=== PATIENT | female | born 1960 | race Caucasian/White ===

== ENCOUNTER → 2019-07-26 | Outpatient (CLI) | payer OTHER ==
[~2019-07-26] MED LIST: AMLO10TA4 PO; ASPI-586 PO; LISI1TAB8 PO; METO-333 PO; NITR-65 PO; TAMS0.4C98 PO; TRAM50TA2 PO
--- NOTE | 2019-07-26 14:43 | Diagnostic Imaging Report ---
INDICATION: Right nephrolithiasis KUB 1:36 p.m. FINDINGS: Bowel gas pattern is normal. There are no pathologic masses or calcifications in the abdomen. There is a linear calcification low on the right side of the pelvis that could be a distal ureteral calculus. IMPRESSION: Questionable distal right ureteral calculus. Dictated by: Dictated on workstation # [id number]
== END ==
LOC: RAD 13:23
PROVIDERS: ATTEND Urology
DX: N20.2 Calculus of kidney with calculus of ureter (principal)
CPT/HCPCS: 74018

== ENCOUNTER 2019-07-30 05:33 | Outpatient (CLI) | payer OTHER ==
[~2019-07-30] VITALS: Ht 172.7 cm; Wt 90.8 kg
[2019-07-30] MEDS ORDERED: TAMS0.4C98 PO (12:24)
[2019-07-30] MEDS ORDERED: AMLO10TA4 PO (12:24)
[2019-07-30] MEDS ORDERED: METO-333 PO (12:24)
[2019-07-30] MEDS ORDERED: ASPI-586 PO (12:24)
[2019-07-30] MEDS ORDERED: LISI1TAB8 PO (12:24)
[2019-07-30] MEDS ORDERED: TRAM50TA2 PO (12:24)
[2019-07-31] MEDS ORDERED: NITR-65 PO (11:00)
== END 2019-07-30 12:27 | disposition home or self-care (01) ==
LOC: PREOP 05:33
PROVIDERS: ATTEND Urology
DX: Z01.818 Encounter for other preprocedural examination (principal)

== ENCOUNTER 2019-07-31 06:49 | Day surgery (SDC) | payer OTHER ==
[~2019-07-31] VITALS: Ht 172.7 cm; Wt 90.8 kg
[2019-07-31] VITALS (12 sets, daily range): BP systolic 84–128; BP diastolic 48–92
[~2019-07-31 06:49] MED LIST changes: -NITR-65 PO
--- NOTE | 2019-07-31 07:08 | Progress Note-Pre Operative ---
Pre-Operative Progress Note H&P Reviewed The H&P was reviewed, patient examined and no changes noted. Date Seen by Provider: Jul 31, 2019 Time Seen by Provider: 07:08 Date H&P Reviewed: Jul 31, 2019 Time H&P Reviewed: 07:08 Pre-Operative Diagnosis: RT DISTAL URETERAL STONE BEVERLY CERVANTES MD Jul 31, 2019 07:08 POS
[2019-07-31] MEDS ORDERED: cefTRIAXone FOR IV USE 1,000 MG in WATER (STERILE) FOR INJECTION 10 ML IV ONE (07:15)
[2019-07-31] MEDS ORDERED: CATHETER FLUSH 10 ML SYR IV PRN (07:30)
--- NOTE | 2019-07-31 07:55 | Diagnostic Imaging Report ---
INDICATION: ESWL. Single view of the abdomen was obtained and compared to 07/26/2019. FINDINGS: Again noted is a calcification in the right side of the pelvis, possibly in the distal right ureter. It is unchanged from the prior exam. No definite calcifications over the renal shadows or along the expected course of the proximal or mid ureters. No free air or evidence for bowel obstruction although there is a large amount of stool which might indicate some constipation. IMPRESSION: 1. There is an 8 mm calcification in the right side of the pelvis unchanged in position since the prior study. This could be in the distal right ureter. Dictated by: Dictated on workstation # [id number]
[2019-07-31] MEDS ORDERED: MIDAZOLAM 2 MG/2 ML (VERSED) VIAL ONE (07:59)
[2019-07-31] MEDS ORDERED: fentaNYL INJECTION 100 MCG/2 ML AMP ONE (07:59)
[2019-07-31] MEDS: LACTATED RINGERS 1,000 ML IV PRN ×2 (08:17→09:37)
[2019-07-31] MEDS ORDERED: FUROSEMIDE 40 MG/4 ML INJ (LASIX) ONE (08:43)
[2019-07-31] MEDS ORDERED: proPOfol 200 MG/20 ML (DIPRIVAN) VIAL IV ONE (08:43)
[2019-07-31] MEDS ORDERED: ONDANSETRON 4 MG/2 ML (SDV) Z0FRAN ONE (08:43)
[2019-07-31] MEDS ORDERED: SEVOFLURANE (ULTANE) 15 ML INHAL SOLN ONE ×7 (08:43→09:43)
[2019-07-31] MEDS ORDERED: LIDOCAINE PF 2% 5 ML (XYLOCAINE) VIAL ONE (08:43)
[2019-07-31] MEDS ORDERED: KETOROLAC 30 MG/ML VIAL ONE (08:43)
[2019-07-31] MEDS ORDERED: ROCURONIUM 10 MG/ML 5 ML SYRINGE IV ONE (08:55)
[2019-07-31] MEDS ORDERED: GLYCOPYRROLATE 0.2 MG/ML (ROBINUL) 2 ML VIAL ONE (09:15)
--- NOTE | 2019-07-31 09:18 | Discharge Inst-Urology ---
Discharge Inst-Urology Reconcile Patient Problems Problems Reviewed?: Yes Final Diagnosis RT DISTAL URETERAL STONE Patient Instructions/Follow Up Plan/Assessment/Instructions Please make appointment to been seen in office in 2 weeks. KUB prior to it. Stay off ASA till then KUB on way home Post ESWL instructions Increase oral fluids for 48 hours and then as needed. Diet and Activity as tolerated. If questions or concerns contact your physician Or seek help at emergency department. BEVERLY CERVANTES MD Jul 31, 2019 09:18 POS
--- NOTE | 2019-07-31 09:20 | Progress Note-Post Operative ---
Post-Operative Progess Note Surgeon (s)/Supervisor [employer] (s) Surgeon BEVERLY CERVANTES MD Supervisor [employer]: SAME Pre-Operative Diagnosis RT DISTAL URETERAL STONE AND 3/4+ CYSTOCELE Post-Operative Diagnosis SAME Procedure & Operative Findings Date of Procedure 07/31/19 Procedure Performed/Findings RT URETEROSCOPY, RT ESWL Anesthesia Type GENERAL Estimated Blood Loss Estimated blood loss (mL): NONE Specimens/Packing Specimens Removed NONE Packing: NONE BEVERLY CERVANTES MD Jul 31, 2019 09:20 POS
[2019-07-31] MEDS ORDERED: morphine INJ 10 MG/ML 1ML (SYR OR VIAL) IVP ONE (10:00)
[2019-07-31] MEDS ORDERED: ONDANSETRON 4 MG/2 ML (SDV) Z0FRAN IVP PRN (10:00)
[2019-07-31] MEDS ORDERED: fentaNYL INJECTION 100 MCG/2 ML AMP IVP ONE (10:00)
[2019-07-31] MEDS ORDERED: MEPERIDINE (DEMEROL) INJ 50 MG/ML IVP ONE (10:00)
[2019-07-31] MEDS ORDERED: NITR-65 PO (11:00)
--- NOTE | 2019-07-31 12:54 | Anesthesia-General Post-Op ---
General Patient Condition Mental Status/LOC: Same as Preop Cardiovascular: Satisfactory Nausea/Vomiting: Absent Respiratory: Satisfactory Pain: Controlled Complications: Absent Post Op Complications Complications None Follow Up Care/Instructions Patient Instructions None needed. Anesthesia/Patient Condition Patient Condition Patient is doing well, no complaints, stable vital signs, no apparent adverse anesthesia problems. No complications reported per nursing. ANITA PIERRE CRNA Jul 31, 2019 12:54 POS
--- NOTE | 2019-07-31 14:19 | OPERATIVE REPORT ---
DATE OF SERVICE: 07/31/2019 PREOPERATIVE DIAGNOSIS: Right distal ureteral stone. POSTOPERATIVE DIAGNOSIS: Right distal ureteral stone. OPERATION PERFORMED: Right ureteroscopy and right ESWL. SURGEON: Sunday Cervantes MD ANESTHESIA: General. COMPLICATIONS: None. DESCRIPTION OF PROCEDURE: Under satisfactory general anesthesia, the patient in lithotomy position, genitalia were prepped and draped in the usual sterile fashion, noted a 3 to 4+ cystocele. The cystoscope was introduced under vision. The ureteral orifice right side was visualized. I had to put some lap in the vagina to reduce the cystocele to be able to get into the ureter. I dilated the right ureteral orifice intramural portion to accommodate a 6.9 [place] semirigid ureteroscope; however, I could not manipulate it with what might have been a curve secondary to cystocele to get to the stone. I discontinued further attempt to cause no harm. I removed the ureteroscope, emptied the bladder and removed the cystoscope. The patient was moved on the ESWL table supine. The right ureteral stone distal was localized. Shocks were delivered at kV of 7. A total of 3500 shocks completely fragmented the stone very nicely and the patient received 30 mg of Toradol and 40 mg of Lasix IV at the end of the procedure. She tolerated the procedure and anesthesia well and was sent to recovery room in stable condition. There was no bruise, hematoma or sign of any bleeding at the skin, subcutaneous tissue level. Job ID: [id number] DocumentID: [id number] Dictated Date: 07/31/2019 09:47:05 [employer] Date: 07/31/2019 14:18:34 Dictated By: SUNDAY CERVANTES MD
--- NOTE | 2019-07-31 16:15 | Diagnostic Imaging Report ---
INDICATION: Nephrolithiasis. EXAMINATION: KUB at 11:49 AM. FINDINGS: There is a moderate amount of stool in the colon. There is a 7 mm linear calcific density in the right side of the pelvis, similar to the study from earlier in the day. IMPRESSION: Possible calculus in the distal right ureter. Dictated by: Dictated on workstation # [id number]
== END 2019-07-31 12:15 | disposition home or self-care (01) ==
LOC: SDC 06:49
PROVIDERS: ATTEND Urology
DX: N20.1 Calculus of ureter (principal); N40.0 Benign prostatic hyperplasia without lower urinary tract symptoms; I10 Essential (primary) hypertension; J30.9 Allergic rhinitis, unspecified; G62.9 Polyneuropathy, unspecified; K21.9 Gastro-esophageal reflux disease without esophagitis; Z79.899 Other long term (current) drug therapy; Z88.5 Allergy status to narcotic agent; Z88.8 Allergy status to other drugs, medicaments and biological substances; Z83.3 Family history of diabetes mellitus; Z80.1 Family history of malignant neoplasm of trachea, bronchus and lung
CPT/HCPCS: 74018; 87081

== ENCOUNTER → 2019-08-06 | Outpatient (CLI) | payer OTHER ==
[~2019-08-06] MED LIST changes: +NITR-65 PO
--- NOTE | 2019-08-06 16:01 | Diagnostic Imaging Report ---
INDICATION: Lower abdominal pain x3 weeks. Recent ESWL. COMPARISON: 07/31/2019 FINDINGS: Multiple supine and upright radiographic views of the abdomen were obtained. Small bowel loops are nondistended. A few air-fluid levels are noted, but appear to be within the colon. There is no large collection of free intraperitoneal air. No unexpected extraosseous calcifications or radiopaque foreign bodies are seen. Osseous structures show no new acute abnormalities. Included portions of the lung bases are clear. IMPRESSION: 1. No unexpected extraosseous calcifications or radiopaque foreign bodies. 2. Nonobstructive small gas pattern. Dictated by: Dictated on workstation # [id number]
== END ==
LOC: RAD 15:28
PROVIDERS: ATTEND Urology
DX: N20.2 Calculus of kidney with calculus of ureter (principal)
CPT/HCPCS: 74019

== ENCOUNTER 2022-12-29 11:59 | Day surgery (SDC) | payer OTHER ==
[~2022-12-29] VITALS: Ht 172.7 cm; Wt 90.8 kg
[~2022-12-29 11:59] MED LIST changes: +LISI1TAB46 PO; -LISI1TAB8 PO; -TAMS0.4C98 PO; +TMSL.4C PO; -TRAM50TA2 PO; +TRM50T PO
[2022-12-29] MEDS ORDERED: ASPIRIN 81 MG CHEW (CHILDREN'S ASA) PO ONE (12:15)
[2022-12-29] MEDS ORDERED: NITROGLYCERIN 0.4 MG SL TABS BTL 25'S SL PRN (12:15)
--- NOTE | 2022-12-29 12:19 | ED Chest Pain ---
General Chief Complaint: Chest Pain Stated Complaint: CHEST PAINS Source: patient Exam Limitations: no limitations (CARMEN HERNÁNDEZ) History of Present Illness Date Seen by Provider: Dec 29, 2022 Time Seen by Provider: 12:13 Initial Comments Patient is a 62-year-old female who presents to the ED for chest pain. Chest pain started 20 minutes ago while sitting in the car. She felt this pressure along her chest that radiated to her back. She rates the chest pressure 6 out of 10. She felt a pain that radiate up into the neck bilateral. She had associated shortness of breath. She states the pain caused her to lean forward. She felt nauseous and lightheaded. She states she has been having r ight shoulder back pain over the past 3 days. Pain appears to be worse with movement or deep inspiration. The pain today does radiate to the right shoulder worse with deep inspiration and breathing. She denies having history of similar symptoms in the past. Patient has a history of hypertension, dyslipidemia. Family cardiac history. Denies history of cardiac work-up in the past. She denies vomiting, diarrhea, cough, abdominal pain, dysuria, hematuria. Denies take any medication for her pain (CARMEN HERNÁNDEZ) Allergies and Home Medications Allergies Coded Allergies: acetaminophen (Verified Allergy, Unknown, Vomiting, 12/29/22) oxycodone (Verified Allergy, Unknown, Vomiting, 12/29/22) Patient Home Medication List Home Medication List Reviewed: Yes (CARMEN HERNÁNDEZ) Amlodipine Besylate (Norvasc) Unknown Strength Tablet, 1 TAB PO DAILY, (Reported) Entered as Reported by: VINCENT ROPER on 07/30/19 1224 Lisinopril/Hydrochlorothiazide (Lisinopril-Hctz 20-12.5 mg Tab) 1 Each Tablet, 1 EACH PO DAILY, (Reported) Entered as Reported by: VINCENT ROPER on 07/30/19 1224 Metoprolol Tartrate (Metoprolol Tartrate) Unknown Strength Tablet, 1 TAB PO BID, (Reported) Entered as Reported by: VINCENT ROPER on 07/30/19 1224 Nitrofurantoin Monohyd/M-Cryst (Macrobid 100 mg Capsule) 100 Mg Capsule, 1 TAB PO BID Prescribed by: CRISTINO ADEN on 07/31/19 1100 Pantoprazole Sodium (Protonix) 40 Mg Tablet.dr, 40 MG PO DAILY Prescribed by: FERN MCGREGOR on 12/29/22 1605 Tamsulosin HCl (Flomax) 0.4 Mg Cap, 0.4 MG PO DAILY, (Reported) Entered as Reported by: VINCENT ROPER on 07/30/19 1224 Tramadol HCl (Tramadol HCl) 50 Mg Tablet, 50 MG PO Q6H PRN for PAIN-MILD (1-4), (Reported) Entered as Reported by: VINCENT ROPER on 07/30/19 1224 Review of Systems Review of Systems Constitutional: No chills, No diaphoresis, No fever, No malaise, No weakness EENTM: No Double Vision, No Eye Pain Respiratory: Denies Cough, Denies Orthopnea; Shortness of Air Cardiovascular: Chest Pain; Denies Edema, Denies Irregular Heart Rate Gastrointestinal: Denies Abdominal Pain, Denies Nausea Genitourinary: Denies Drainage, Denies Frequency, Denies Flank Pain Musculoskeletal: back pain; No joint pain Skin: No change in color, No change in hair/nails Psychiatric/Neurological: Other (Lightheadedness) (CARMEN HERNÁNDEZ) All Other Systems Reviewed Negative Unless Noted: Yes (CARMEN HERNÁNDEZ) Past Ekkgfdf-Revuyp-Arcsdv Hx Immunizations Up To Date PED Vaccines UTD: No (CARMEN HERNÁNDEZ) Seasonal Allergies Seasonal Allergies: Yes (CARMEN HERNÁNDEZ) Past Medical History Surgeries: Yes (kidney stone basket) Tonsillectomy Respiratory: No Cardiac: Yes Hypertension Neurological: No Genitourinary: Yes Kidney Stones Gastrointestinal: No Musculoskeletal: No Endocrine: No HEENT: No Cancer: No Psychosocial: No Integumentary: No Blood Disorders: No (CARMEN HERNÁNDEZ) Physical Exam Vital Signs Vital Signs - First Documented 12/29/22 12:05 Temp 36.1 Pulse 77 Resp 18 B/P (MAP) 166/98 (120) Pulse Ox 100 O2 Delivery Room Air (NICHOLAS,JOSSY L DO) Vital Signs Capillary Refill : (CARMEN HERNÁNDEZ) Height, Weight, BMI Height: '" Weight: lbs. oz. kg; 30.44 BMI Method: General Appearance: No Apparent Distress, WD/WN HEENT: PERRL/EOMI, TMs Normal, Normal ENT Inspection, Pharynx Normal Neck: Full Range of Motion, Normal Inspection, Non Tender, Supple Respiratory: Chest Non Tender, Lungs Clear, Normal Breath Sounds, No Accessory Muscle Use, No Respiratory Distress, Other (Right posterior upper back tenderness) Cardiovascular: Regular Rate, Rhythm, No Edema, No Gallop, No JVD, No Murmur Gastrointestinal: Normal Bowel Sounds, No Organomegaly, No Pulsatile Mass, Non Tender Extremity: Normal Inspection, Normal Range of Motion, Non Tender, No Calf Tenderness Neurologic/Psychiatric: Alert, Oriented x3, No Motor/Sensory Deficits, Normal Mood/Affect, playground equipment erector II-XII Norm as Tested Skin: Normal Color, Warm/Dry (CARMEN HERNÁNDEZ) Progress/Results/Core Measures Results/Orders Lab Results Laboratory Tests Test 12/29/22 12:13 Range/Units White Blood Count 6.4 4.3-11.0 10^3/uL Red Blood Count 4.72 3.80-5.11 10^6/uL Hemoglobin 13.3 11.5-16.0 g/dL Hematocrit 40 35-52 % Mean Corpuscular Volume 86 80-99 fL Mean Corpuscular Hemoglobin 28 25-34 pg Mean Corpuscular Hemoglobin Concent 33 32-36 g/dL Red Cell Distribution Width 13.1 10.0-14.5 % Platelet Count 259 130-400 10^3/uL Mean Platelet Volume 10.9 9.0-12.2 fL Immature Granulocyte % (Auto) 0 % Neutrophils (%) (Auto) 52 42-75 % Lymphocytes (%) (Auto) 36 12-44 % Monocytes (%) (Auto) 9 0-12 % Eosinophils (%) (Auto) 3 0-10 % Basophils (%) (Auto) 1 0-10 % Neutrophils # (Auto) 3.3 1.8-7.8 10^3/uL Lymphocytes # (Auto) 2.3 1.0-4.0 10^3/uL Monocytes # (Auto) 0.6 0.0-1.0 10^3/uL Eosinophils # (Auto) 0.2 0.0-0.3 10^3/uL Basophils # (Auto) 0.0 0.0-0.1 10^3/uL Immature Granulocyte # (Auto) 0.0 0.0-0.1 10^3/uL Prothrombin Time 12.9 12.2-14.7 SEC INR Comment 0.9 0.8-1.4 Activated Partial Thromboplast Time 32 24-35 SEC D-Dimer 0.38 0.00-0.49 UG/ML Sodium Level 141 135-145 MMOL/L Potassium Level 3.5 L 3.6-5.0 MMOL/L Chloride Level 106 98-107 MMOL/L Carbon Dioxide Level 24 21-32 MMOL/L Anion Gap 11 5-14 MMOL/L Blood Urea Nitrogen 14 7-18 MG/DL Creatinine 0.88 0.60-1.30 MG/DL Estimat Glomerular Filtration Rate 75 BUN/Creatinine Ratio 16 Glucose Level 100 70-105 MG/DL Calcium Level 9.7 8.5-10.1 MG/DL Corrected Calcium 9.3 8.5-10.1 MG/DL Magnesium Level 2.3 1.6-2.4 MG/DL Total Bilirubin 0.6 0.1-1.0 MG/DL Aspartate Amino Transf (AST/SGOT) 23 5-34 U/L Alanine Aminotransferase (ALT/SGPT) 25 0-55 U/L Alkaline Phosphatase 86 40-136 U/L Myoglobin 35.7 10.0-92.0 NG/ML Troponin I < 0.028 <0.028 NG/ML B-Type Natriuretic Peptide 46.5 <100.0 PG/ML Total Protein 8.0 6.4-8.2 GM/DL Albumin 4.5 3.2-4.5 GM/DL Lipase 19 8-78 U/L (NICHOLAS,JOSSY L DO) My Orders Orders - NICHOLAS,JOSSY L DO Ekg Tracing (12/29/22 12:04) (NICHOLAS,JOSSY L DO) Medications Given in ED Current Medications Medications Dose Ordered Sig/Miranda Route Start Time Stop Time Status Last Admin Dose Admin Aspirin 324 mg ONCE ONCE PO 12/29/22 12:15 12/29/22 12:16 DC 12/29/22 12:37 324 MG Morphine Sulfate 4 mg STK-MED ONCE .ROUTE 12/29/22 12:49 12/29/22 12:51 DC 4/19/23 12:52 2 MG Nitroglycerin 0.4 mg UD PRN SL 12/29/22 12:15 12/29/22 12:37 0.4 MG (JOSSY NICHOLAS DO) Vital Signs/I&O 12/29/22 12/29/22 12/29/22 12:05 12:36 12:45 Temp 36.1 Pulse 77 78 76 Resp 18 B/P (MAP) 166/98 (120) 127/105 (112) 132/90 (104) Pulse Ox 100 O2 Delivery Room Air (JOSSY NICHOLAS DO) Comment Sinus rhythm, prolonged OR interval, 67 bpm, QRS duration 97 MS, QTc 432 MS (CARMEN HERNÁNDEZ) Departure Communication (Admissions) Time/Spoke to Admitting Phy: 14:11 (CARMEN HERNÁNDEZ) Communication (PCP) Reviewed previous visits, H&P, lab testing. Differential diagnosis of acute coronary syndrome, CHF, PE, pneumonia, pneumothorax, pleurisy, musculoskeletal pain. acute onset of chest pain 20 minutes before arrival. She was sat in the car. She felt nauseous short of breath with rating pain to the neck. She states she has had some right upper shoulder blade pain over the past 3 days seems to be worse with movement or deep inspiration. No known cardiac history. History of dyslipidemia, hypertension, family cardiac history. Denies history of cardiac work-up. On arrival cardiac work-up was initiated. EKG showed sinus rhythm with prolonged OR interval. 67 bpm. No evidence of ST elevation depression or T wave inversion. She was given a full aspirin 324 and sublingual nitro with some resolution of her chest pain. She initially stated chest pain was 6 out of 10. Chest x-ray was negative for pneumonia, pneumothorax. Lab work was generalized unremarkable. Ischial troponin negative. BNP negative. D-dimer negative. No appreciable leg swelling. She was given a second dose of morphine with near resolution of pain. Patient with a heart score of 4. Cardiac risk factors. Moderate suspicion. Patient was discussed Dr. Mcgregor automated weaver who evaluated patient here in the ER. Dr. Mcgregor recommended patient to go to the [facility]. Consent was given. (CARMEN HERNÁNDEZ) Impression Primary Impression: Chest pain Disposition: ADMITTED INPATIENT Condition: Stable Admissions Decision to Admit Reason: Admit from ER (General) Decision to Admit/Date: Dec 29, 2022 Time/Decision to Admit Time: 14:24 (CARMEN HERNÁNDEZ) Departure-Patient Inst. Referrals: ROCIO BRAUN DO (PCP/Family) Primary Care Physician Scripts Pantoprazole Sodium (Protonix) 40 Mg Tablet. 40 MG PO DAILY, #30 TAB 3 Refills Prov: FERN MCGREGOR MD 12/29/22 CARMEN HERNÁNDEZ Dec 29, 2022 12:19 JOSSY NICHOLAS DO Dec 29, 2022 14:05
[2022-12-29 12:20] LABS: BASOPHILS % (AUTO) 1 % (0-10); EOSINOPHILS # (AUTO) 0.2 10^3/uL (0.0-0.3); EOSINOPHILS % (AUTO) 3 % (0-10); HEMATOCRIT 40 % (35-52); HEMOGLOBIN 13.3 g/dL (11.5-16.0); LYMPHOCYTES # (AUTO) 2.3 10^3/uL (1.0-4.0); LYMPHOCYTES % (AUTO) 36 % (12-44); MEAN CORPUSCULAR HEMOGLOBIN 28 pg (25-34); MEAN CORPUSCULAR HGB CONC 33 g/dL (32-36); MEAN CORPUSCULAR VOLUME 86 fL (80-99); MEAN PLATELET VOLUME 10.9 fL (9.0-12.2); MONOCYTES # (AUTO) 0.6 10^3/uL (0.0-1.0); MONOCYTES % (AUTO) 9 % (0-12); NEUTROPHILS # (AUTO) 3.3 10^3/uL (1.8-7.8); NEUTROPHILS % (AUTO) 52 % (42-75); PLATELET COUNT 259 10^3/uL (130-400); WHITE BLOOD COUNT 6.4 10^3/uL (4.3-11.0)
[2022-12-29 12:49] LABS: ALBUMIN 4.5 GM/DL (3.2-4.5); INR 0.9 (0.8-1.4); POTASSIUM 3.5 MMOL/L (3.6-5.0); PROTHROMBIN TIME PATIENT 12.9 SEC (12.2-14.7)
[2022-12-29] MEDS ORDERED: morphine INJ 4 MG/ML 1 ML (VIAL/SYRINGE) ONE (12:49)
[2022-12-29 12:50] LABS: CALCIUM 9.7 MG/DL (8.5-10.1)
[2022-12-29 12:53] LABS: BILIRUBIN,TOTAL 0.6 MG/DL (0.1-1.0)
[2022-12-29 12:55] LABS: CREATININE SERUM 0.88 MG/DL (0.60-1.30)
[2022-12-29 12:58] LABS: MAGNESIUM 2.3 MG/DL (1.6-2.4)
[2022-12-29] MEDS ORDERED: morphine INJ 10 MG/ML 1ML (SYR OR VIAL) IVP ONE (13:00)
--- NOTE | 2022-12-29 13:04 | Diagnostic Imaging Report ---
CLINICAL INDICATION: Patient with chest pain. EXAM: Portable chest x-ray upright view. COMPARISON: None. FINDINGS: Lungs/pleura: There is mild bibasilar atelectasis. Otherwise, lungs are clear. There is no pneumothorax. There is no pleural effusion. Mediastinum: Unremarkable. Pulmonary vasculature: Unremarkable. Heart: Unremarkable. Bones/extrathoracic soft tissue: There are degenerative spurs involving the thoracic spine. IMPRESSION: There is mild bibasilar atelectasis. There is no radiographic evidence of acute cortical pulmonary process. Dictated by: Dictated on workstation # [id number]
[2022-12-29] MEDS ORDERED: LIDOCAINE 2% 20 ML (XYLOCAINE) VIAL ONE (14:16)
[2022-12-29] MEDS ORDERED: HEParin (CATH LAB) 2,000 ML IV ONE (14:16)
[2022-12-29] MEDS ORDERED: NS IV 1000 ML 1,000 ML ONE (14:16)
--- NOTE | 2022-12-29 14:23 | Consultation-Cardiology ---
HPI-Cardiology Cardiology Consultation Date of Consultation 12/29/22 Date of Admission Time Seen by Provider: 14:17 Indication: Chest pain HPI Patient is a 62 y.o. female with history or HTN, HLP. Presented to the ER with complaints of chest pain this afternoon while riding in car. Describes pain as sharp and stabbing initially, followed by pressure. Associated right arm, neck a nd jaw pain, associated nausea. Was given SL nitro and morphine with some relief of pain. Upon interviewing patient she is tearful and appears anxious. Reports ongoing chest pressure and some dizziness. Home Medications & Allergies Allergies: Coded Allergies: acetaminophen (Verified Allergy, Unknown, Vomiting, 12/29/22) oxycodone (Verified Allergy, Unknown, Vomiting, 12/29/22) Home Medication List Reviewed: Yes SIN-Jeuraw-Ijbpnk Hx Patient Social History Marital Status: single Employed/Student: employed Smoking Status: Former Smoker 2nd Hand Smoke Exposure: No Recent Hopitalizations: No Have you traveled recently?: No Alcohol Use?: No Past Medical History HTN, HLP Family Medical History Significant Family History: No Pertinent Family Hx Review of Systems-General Review of Systems Constitutional: see HPI; No chills, No diaphoresis; dizziness; No fever, No malaise, No weakness EENTM: see HPI; No blurred vision, No double vision Respiratory: see HPI; No cough, No dyspnea on exertion, No hemoptysis, No orthopnea, No phlegm; short of breath; No stridor, No wheezing, No other Cardiovascular: see HPI, chest pain, edema; No Hx of Intervention, No palpitations; syncope; No vascular heart diseas, No other Gastrointestinal: no symptoms reported, see HPI Genitourinary: no symptoms reported, see HPI Musculoskeletal: back pain; No joint pain Skin: No change in color, No change in hair/nails Psychiatric/Neurological: Other (Lightheadedness) All Other Systems Reviewed Negative Unless Noted: Yes Reviewed Test Results Reviewed Test Results Lab Laboratory Tests 12/29/22 12:13: White Blood Count 6.4, Red Blood Count 4.72, Hemoglobin 13.3, Hematocrit 40, Mean Corpuscular Volume 86, Mean Corpuscular Hemoglobin 28, Mean Corpuscular Hemoglobin Concent 33, Red Cell Distribution Width 13.1, Platelet Count 259, Mean Platelet Volume 10.9, Immature Granulocyte % (Auto) 0, Neutrophils (%) (Auto) 52, Lymphocytes (%) (Auto) 36, Monocytes (%) (Auto) 9, Eosinophils (%) (Auto) 3, Basophils (%) (Auto) 1, Neutrophils # (Auto) 3.3, Lymphocytes # (Auto) 2.3, Monocytes # (Auto) 0.6, Eosinophils # (Auto) 0.2, Basophils # (Auto) 0.0, Immature Granulocyte # (Auto) 0.0, Prothrombin Time 12.9, INR Comment 0.9, Activated Partial Thromboplast Time 32, D-Dimer 0.38, Sodium Level 141, Potassium Level 3.5L, Chloride Level 106, Carbon Dioxide Level 24, Anion Gap 11, Blood Urea Nitrogen 14, Creatinine 0.88, Estimat Glomerular Filtration Rate 75, BUN/Creatinine Ratio 16, Glucose Level 100, Calcium Level 9.7, Corrected Calcium 9.3, Magnesium Level 2.3, Total Bilirubin 0.6, Aspartate Amino Transf (AST/SGOT) 23, Alanine Aminotransferase (ALT/SGPT) 25, Alkaline Phosphatase 86, Myoglobin 35.7, Troponin I < 0.028, B-Type Natriuretic Peptide 46.5, Total Protein 8.0, Albumin 4.5, Lipase 19 12/29/22 14:15: ECG Impression ECG Initial ECG Rhythm: Normal Sinus Physical Exam Physical Exam Vital Signs Vital Signs - First Documented 12/29/22 12:05 Temp 36.1 Pulse 77 Resp 18 B/P (MAP) 166/98 (120) Pulse Ox 100 O2 Delivery Room Air Capillary Refill : Less Than 3 Seconds Height, Weight, BMI Height: '" Weight: lbs. oz. kg; 30.00 BMI Method: General Appearance: No Apparent Distress, WD/WN, Anxious Eyes: Bilateral Eye Normal Inspection, Bilateral Eye PERRL, Bilateral Eye EOMI HEENT: PERRL/EOMI, TMs Normal, Normal ENT Inspection, Pharynx Normal Neck: Full Range of Motion, Normal Inspection, Non Tender, Supple Respiratory: Chest Non Tender, Lungs Clear, Normal Breath Sounds, No Accessory Muscle Use, No Respiratory Distress, Other (Right posterior upper back tenderness) Cardiovascular: Regular Rate, Rhythm, No Edema, No Gallop, No JVD, No Murmur Gastrointestinal: Normal Bowel Sounds, No Organomegaly, No Pulsatile Mass, Non Tender Back: Normal Inspection, No CVA Tenderness, No Vertebral Tenderness Extremity: Normal Inspection, Normal Range of Motion, Non Tender, No Calf Tenderness Neurologic/Psychiatric: Alert, Oriented x3, No Motor/Sensory Deficits, Normal Mood/Affect, claims assistant II-XII Norm as Tested Skin: Normal Color, Warm/Dry Lymphatic: No Adenopathy A/P-Cardiology Admission Diagnosis Chest pain HTN HLP Assessment/Plan Chest pain, resembling angina. EKG done showing SR with no acute ST changes. Initial troponin negative. Was given SL NG with some relief of her pain, still however complaining of chest pressure. Has risk factors for underlying CAD. Will proceed with cardiac catheterization HTN, restart home blood pressure medications and continue to monitor HLP, maintained on statin as outpatient, I will evaluate lipid profile. Extobaccoism History of kidney stones Anxiety Thank you for allowing us to participate in the management of Ms. Canales. This is Kayla Serrato PA-C, as a scribe for Dr. Mcgregor. Patient was seen and evaluated with Kayla, we discussed the management plan, she is still having active chest pain but reported improvement with nitroglycerin No full resolution of the pain EKG and cardiac enzymes did not show any acute abnormality, patient cannot tolerate stress test due to the active pain, We discussed the management plan recommended cardiac catheterization possible PTCA. Clinical Quality Measures AMI/AHF: ASA po Prior to arrival: No KAYLA FINE Dec 29, 2022 14:23 FERN MCGREGOR MD Dec 29, 2022 14:46
[2022-12-29] MEDS ORDERED: fentaNYL INJ 100 MCG/2 ML AMP ONE (14:44)
[2022-12-29] MEDS ORDERED: MIDAZOLAM 5 MG/5 ML (VERSED) VIAL ONE (14:44)
[2022-12-29] MEDS ORDERED: VERAPAMIL 5 MG/2 ML (CALAN) VIAL IV ONE (14:44)
[2022-12-29] MEDS ORDERED: HEParin 1000 UNIT/ML (10ML VIAL) FOR BOLUS ONE (14:44)
[2022-12-29] MEDS ORDERED: NITRO DRIP 25000 MCG/D5W 250 ML IV ONE (14:44)
--- NOTE | 2022-12-29 15:29 | Discharge Inst-Post CATH ---
Discharge Inst-CATH/EP Problems Reviewed?: Yes Post Cardiac Cath/EP D/C Inst Follow Up/Plan Appointment with Dr. Mcgregor's office in 2 to 4 weeks <b>CARDIAC CATH/EP PROCEDURE DISCHARGE INSTRUCTIONS</b> ACTIVITY * Go Home directly and rest. * Limit activity of the leg (or wrist if it was used) for 7 days including aer obics, swimming, jogging, bicycling, etc. * Restrict stair-climbing for 7 days if possible, if not, climb up with your non-cath leg, then bring together on the same step. * Avoid lifting, pushing, pulling or excessive movement of the affected extremi ty for 7 days. * Customary sexual activity may be resumed after 2 days-use caution not to use a position that strains or causes pain to the affected extremity. * No driving for 24 hours. * NO SMOKING. * Avoid straining for bowel movements for 7 days. * Gentle walking on level ground is allowed. * Returning to work will depend on the type of procedure and the results. Your doctor will discuss this with you. CALL YOUR DOCTOR FOR ANY OF THE FOLLOWING: *If bleeding from the puncture site occurs- Apply gentle pressure to site with clean cloth and call your doctor or EMS. * If a knot or lump forms under the skin, increases in size, or causes pain. * If bruising appears to be worsening or moving further down your leg instead of disappearing. * Temperature above 101 F. CARE OF YOUR GROIN INCISION; * Bruising or purple discoloration of the skin near the puncture site is common. * You may shower only, no bathtub bathing for 5 days. Be careful to avoid slipping as your leg may feel stiff. * If a closure device was used on your femoral artery, please see the attached guide regarding care of the device and your leg. * Leave dressing on FOR 24 hours. CARE OF YOUR WRIST INCISION; * Bruising or purple discoloration of the skin near the puncture site is common. * You may shower. * DO NOT submerge wrist. * Leave dressing on FOR 24 hours. FERN MCGREGOR MD Dec 29, 2022 15:29
[2022-12-29] MEDS ORDERED: PATIENT MAY USE OWN MEDS, ALL PO SCH (15:30)
[2022-12-29] MEDS ORDERED: NS IV 1000 ML 1,000 ML IV SCH ×2 (15:30)
--- NOTE | 2022-12-29 15:33 | Cardiac Cath Report ---
Cardiac Cath Report Physician (s)/Integration Aide (s) Physician FERN JOHNSTON MD Pre-Procedure Diagnosis Pre-Procedure Diagnosis: Coronary artery disease Post-Procedure Note Procedure Start Date: Dec 29, 2022 Name of Procedure: Left heart catheterization Aortic arch angiogram Findings/Procedure Note PROCEDURE NOTE: 62-year-old lady with hypertension, hyperlipidemia, admitted with active chest pain, cardiac catheterization was advised. After explaining the procedure to the patient, all pros and cons were explained, all questions were answered. The patient signed the consent and then she was placed in the cardiac catheterization laboratory. Groin was prepped in SL fashion local anesthesia was used. Sheath placed in the right radial artery, [place] catheter was advanced to the left ventricular cavity, I was unable to engage the coronary system with a [place] catheter, exchanges used Alaina left catheter, was unable to engage the left system then I tried with Zac catheter, was unable to engage the coronary system but patient started to have spasm and pain in her right arm subsequently I decided to abort the radial access and proceeded with groin access. Combination of right and left Alaina catheter were used to access the right and left coronary system then I used a Alaina right catheter to evaluate the aortic arch due to the heavy manipulation of the catheter in the arch. At the end of the procedure the sheath was removed. Closure device was deployed in the groin and vascular band in the wrist FINDINGS: Hemodynamics LV 135/14, end-diastolic pressure of 14 Aorta 107/70 mean of 87 ANATOMY: Left Main is free of obstructive disease Left Anterior Descending is slightly tortuous artery with no obstructive disease Left Circumflex is moderate in size, dominant artery with no obstructive disease Right Coronary Artery is moderate in size with tortuous artery with no obstructive disease LV Gram was not done, pressure was measured Aorta evaluation done with aortic arch angiogram, no dissection or aneurysm was noted, normal origin of the brachiocephalic artery, left carotid and left subclavian arteries CONCLUSION: Tortuous coronary system with mild disease nonobstructive disease Normal left ventricular end-diastolic pressure Normal aortic arch and great vessels of the neck DISCUSSION AND RECOMMENDATION: Chest pain is probably noncardiac, medical therapy is recommended no intervention is warranted Anesthesia Type: Conscious Sedation Estimated blood loss (mL): 25 ml Contrast Amount: 42 ml Total Radiation Dose: 389 mGy Post-Procedure Diagnosis Post-operative diagnosis: Chest pain Coronary artery disease Hypertension Hyperlipidemia FERN JOHNSTON MD Dec 29, 2022 15:33
[2022-12-29 16:00] VITALS: BP 121/69
[2022-12-29] MEDS ORDERED: PANT40TA2 PO (16:05)
[2022-12-29] MEDS ORDERED: ACETAMINOPHEN 325 MG TABLET PO NR (17:30)
[2022-12-29 19:36] VITALS: BP 121/71
== END 2022-12-29 20:48 ==
LOC: EDUNIT# 11:59 → ER 12:03 → CATH 14:20 → CSD 15:59 → CATH 20:48
PROVIDERS: ATTEND Internal Medicine Cardiovascular Disease
DX: I25.10 Atherosclerotic heart disease of native coronary artery without angina pectoris (principal); I10 Essential (primary) hypertension; E78.5 Hyperlipidemia, unspecified; F41.9 Anxiety disorder, unspecified; Z87.891 Personal history of nicotine dependence; Z79.899 Other long term (current) drug therapy; Z87.442 Personal history of urinary calculi
CPT/HCPCS: 36221; 36415; 71045; 80053; 83690; 83735; 83874; 83880; 84484; 85025; 85379; 85610; 85730; 93005; 93041; 93306; 93458